=== PATIENT | female | born 1965 | race Caucasian/White ===

== ENCOUNTER 2017-08-17 13:41 | Emergency (ER) | payer BC ==
[~2017-08-17] VITALS: Ht 162.6 cm; Wt 77.1 kg
[~2017-08-17 13:41] MED LIST: BACITRACIN15 GM TOP; BACTRIM DS TAB1 EACH PO; ESTRADIOL1 EAC7 TD; KEFLEX500 MG PO; NORCO 5-325 TA1 EACH PO; TRAMADOL HCL50 MG PO
== END 2017-08-17 15:44 | disposition home or self-care (01) ==
LOC: ED 13:41
DX: F32.9 Major depressive disorder, single episode, unspecified (principal); Z90.710 Acquired absence of both cervix and uterus; Z88.5 Allergy status to narcotic agent
CPT/HCPCS: 80053; 80176; 84439; 84443; 85025; 99283; G0480